=== PATIENT | female | born 1990 | race African-American/Black ===

== ENCOUNTER 2017-11-25 12:27 | Emergency (ER) | payer MEDICAID ==
[~2017-11-25] VITALS: Ht 175.3 cm; Wt 64.4 kg
--- NOTE | 2017-11-25 12:46 | NUR ---
Wants medical exam. Seen and eval by ERMD, may go home. ACI given and explained, showed sign of understanding. Home in stable condition.
== END 2017-11-25 12:55 | disposition home or self-care (01) ==
LOC: ER 12:27
DX: Z00.00 Encounter for general adult medical examination without abnormal findings (principal)
CPT/HCPCS: A4663

== ENCOUNTER 2018-11-11 02:26 | Emergency (ER) | payer MEDICAID ==
[~2018-11-11] VITALS: Ht 175.3 cm; Wt 65.8 kg
--- NOTE | 2018-11-11 02:54 | NUR ---
ER physician at bedside.
[2018-11-11] MEDS ORDERED: ONDANSETRON ODT 4 MG TAB.RAPDIS SL ONE (03:00)
[2018-11-11] MEDS ORDERED: ONDANSETRON ODT 4 MG TAB.RAPDIS ONE (03:04)
--- NOTE | 2018-11-11 03:04 | NUR ---
center medical and lab director at bedside.
[2018-11-11 03:14] LABS: *BILIRUBIN,URIN NEGATIVE (NEGATIVE); *BLOOD, URINE 2+ (NEGATIVE); *CLARITY,URINE CLEAR (CLEAR); *COLOR,URINE YELLOW (YELLOW); *KETONES,URINE TRACE (NEGATIVE); LEUKOCYTE ESTERASE ,URINE NEGATIVE (NEGATIVE); NITRITE, URINE NEGATIVE (NEGATIVE); PH,URINE 5.5 (5.0-8.0); UGLUCOSE NEGATIVE (NEGATIVE)
[2018-11-11 03:17] LABS: BASOPHILS % (AUTO) 0.4 % (0.0-2.0); EOSINOPHILS % (AUTO) 0.1 % (0.0-7.0); HEMATOCRIT 41.2 % (31.2-41.9); HEMOGLOBIN 13.9 g/dL (10.9-14.3); LYMPHOCYTES # (AUTO) 0.7 K/uL (20.0-40.0); LYMPHOCYTES % (AUTO) 14.4 % (20.5-51.5); MEAN CORPUSCULAR HEMOGLOBIN 29.5 uug (24.7-32.8); MEAN CORPUSCULAR HGB CONC 34 g/dL (32.3-35.6); MEAN CORPUSCULAR VOLUME 87.2 fL (75.5-95.3); MONOCYTES # (AUTO) 0.7 K/uL (2.0-10.0); MONOCYTES % (AUTO) 15.4 % (0.0-11.0); NEUTROPHILS # (AUTO) 3.3 K/uL (1.8-8.9); NEUTROPHILS % (AUTO) 69.7 % (38.5-71.5); PLATELET COUNT (AUTO) 99 K/uL (179-408); RED BLOOD CELL COUNT(AUTO) 4.72 MIL/uL (3.63-4.92); WHITE BLOOD COUNT (AUTO) 4.7 K/uL (3.8-11.8)
[2018-11-11 03:20] LABS: BACTERIA,URINE 2 /HPF (NONE SEEN); SQUAMOUS EPITHELIAL CELL,UR MANY /HPF (NONE SEEN); WBC,URINE 0-3 /HPF (0-3)
[2018-11-11 03:21] LABS: *URINE HCG, QUAL NEGATIVE (NEGATIVE)
[2018-11-11 03:23] LABS: CREATININE 0.8 mg/dL (0.6-1.3); POTASSIUM 3.4 mmol/L (3.5-5.1)
[2018-11-11 03:29] LABS: BILIRUBIN,DIRECT 0.2 mg/dL (0.0-0.2); BILIRUBIN,TOTAL 0.8 mg/dL (0.2-1.0); TOTAL PROTEIN, SERUM 7.1 g/dL (6.4-8.2)
[2018-11-11 03:52] LABS: LYMPHOCYTES % (MANUAL) 10 % (20-40); MONOCYTES % (MANUAL) 13 % (2-10); NEUTROPHILS % (MANUAL) 77 % (42-75)
--- NOTE | 2018-11-11 04:00 | NUR ---
Dr. Antonio spoke to [facility] byproducts pump operator, and had a malaria specialist paged. Awaiting call back from [facility].
[2018-11-11] MEDS ORDERED: IV NORMAL SALINE 1000 ML BAG IV ONE ×3 (04:15→14:00)
[2018-11-11] MEDS ORDERED: MORPHINE SULFATE 2 MG/1 ML DISP.SYRIN IV ONE (04:15)
[2018-11-11] MEDS ORDERED: ONDANSETRON 4 MG/2 ML VIAL IV ONE (04:15)
--- NOTE | 2018-11-11 04:26 | NUR ---
[facility] returned call regarding patient case. Dr. Antonio is on the phone with them.
[2018-11-11] MEDS ORDERED: MORPHINE SULFATE 2 MG/1 ML DISP.SYRIN ONE (04:29)
[2018-11-11] MEDS ORDERED: ONDANSETRON 4 MG/2 ML VIAL ONE (04:30)
--- NOTE | 2018-11-11 04:39 | NUR ---
Dr. Antonio called data processing supervisor to find medications for malaria: Malarone and Coartem
--- NOTE | 2018-11-11 05:01 | NUR ---
called warehouse man on follow up with medications. still pending medications
--- NOTE | 2018-11-11 05:06 | NUR ---
Call to [facility] placed to request for panel call with Bear Phelan DNP
--- NOTE | 2018-11-11 05:11 | NUR ---
Sandie, Charge nurse called and will have patient in room 324 on [facility] floor.
--- NOTE | 2018-11-11 05:30 | NUR ---
Calling Col[facility] Wallkill lisandro in regards to Malarone medication.
--- NOTE | 2018-11-11 05:40 | NUR ---
Spoke to the pharmacist, Ishaan, at [facility]. Stated they have supply but will have to wait for pharmacist in charge of dispensing transfer to come in at 0600. Will give a call back until then at [phone].
[2018-11-11] MEDS ORDERED: ACETAMINOPHEN ES 500 MG TABLET PO ONE (05:45)
[2018-11-11] MEDS ORDERED: MORPHINE SULFATE 4 MG/1 ML DISP.SYRIN IV ONE (05:45)
[2018-11-11] MEDS ORDERED: ACETAMINOPHEN ES 500 MG TABLET ONE (05:52)
[2018-11-11] MEDS ORDERED: MORPHINE SULFATE 4 MG/1 ML DISP.SYRIN ONE (05:53)
--- NOTE | 2018-11-11 06:19 | NUR ---
Dr. Antonio on the line with [facility] physician, Renuka chiang, regarding malaria.
[2018-11-11] MEDS ORDERED: CLINDAMYCIN 75 MG/5 ML PO ONE (06:30)
[2018-11-11] MEDS ORDERED: CLINDAMYCIN HCL 300 MG CAPSULE ONE (06:38)
[2018-11-11] MEDS ORDERED: CLINDAMYCIN HCL 150 MG CAPSULE ONE (06:38)
[2018-11-11] MEDS ORDERED: CLINDAMYCIN HCL 150 MG CAPSULE PO ONE (06:45)
--- NOTE | 2018-11-11 07:08 | NUR ---
shift report given to HAWK Moralez.
--- NOTE | 2018-11-11 07:47 | NUR ---
seen patient at the bedside. no complaints presented. advised patient of transfer to [facility] call back. patient requested to call family mombers to be called.
--- NOTE | 2018-11-11 07:52 | NUR ---
talked to Chel, family per patient and let her know about transfer to [facility].
[2018-11-11] MEDS ORDERED: MISCELLANEOUS MED XX ONE (10:45)
--- NOTE | 2018-11-11 13:50 | NUR ---
report given to Nina Schwarz. Lon, service learning coordinator will arrange for ambulance for pickup
[2018-11-11] MEDS ORDERED: KETOROLAC TROMETHAMINE 15 MG INJ IVP ONE (14:00)
[2018-11-11] MEDS ORDERED: METOCLOPRAMIDE HCL 10 MG/2 ML VIAL IV ONE (14:00)
[2018-11-11] MEDS ORDERED: KETOROLAC TROMETHAMINE 30 MG INJ ONE (14:12)
--- NOTE | 2018-11-11 14:18 | NUR ---
another liter of IV NS started and infusing via right AC #20. medicated with reglan and toradol IV
--- NOTE | 2018-11-11 15:26 | NUR ---
report given to Rosie EMT
[2018-11-11 15:34] VITALS: BP 111/68
== END 2018-11-11 15:38 | disposition short-term general hospital (02) ==
LOC: ER 02:28
DX: B54 Unspecified malaria (principal)
CPT/HCPCS: 36415; 71045; 80053; 80076; 81000; 81001; 83615; 84703; 85025; 85730; 87040 ×2; 96374; 96375; 96376; 99285; J1885; J2270 ×2; J2405; A4663; A9150; J7030; Q0162

== ENCOUNTER 2024-08-12 23:49 | Emergency (ER) | payer MEDICAID, OTHER ==
[~2024-08-12] VITALS: Ht 175.3 cm; Wt 79.4 kg
[~2024-08-12 23:49] MED LIST: NAPR-1009 PO
[2024-08-13 00:40] LABS: BASOPHILS % (AUTO) 0.7 % (0.0-2.0); EOSINOPHILS # (AUTO) 0.1 K/uL (0.0-0.7); HEMATOCRIT 34.3 % (31.2-41.9); LYMPHOCYTES # (AUTO) 2.8 K/uL (0.8-4.8); LYMPHOCYTES % (AUTO) 45.7 % (20.5-51.5); MEAN CORPUSCULAR HEMOGLOBIN 30.4 uug (24.7-32.8); MEAN CORPUSCULAR HGB CONC 35 g/dL (32.3-35.6); MEAN CORPUSCULAR VOLUME 86.7 fL (75.5-95.3); MONOCYTES # (AUTO) 0.6 K/uL (0.1-1.30); MONOCYTES % (AUTO) 9.2 % (0.0-11.0); NEUTROPHILS # (AUTO) 2.6 K/uL (1.8-8.9); NEUTROPHILS % (AUTO) 42.4 % (38.5-71.5); PLATELET COUNT (AUTO) 226 K/uL (179-408); RED BLOOD CELL COUNT(AUTO) 3.96 MIL/uL (3.63-4.92); RED CELL DISTRIBUTION WIDTH 13.9 % (12.3-17.7); WHITE BLOOD COUNT (AUTO) 6.1 K/uL (3.8-11.8)
[2024-08-13 00:41] LABS: DIFFERENTIAL COMMENT 1
[2024-08-13 00:45] LABS: CALCIUM 8.2 mg/dL (8.5-10.1); CREATININE 0.8 mg/dL (0.6-1.3); POTASSIUM 3.4 mmol/L (3.5-5.1)
[2024-08-13 00:57] LABS: ALBUMIN 3.2 g/dL (3.4-5.0); BILIRUBIN,TOTAL 0.3 mg/dL (0.2-1.0); TOTAL PROTEIN, SERUM 7.1 g/dL (6.4-8.2)
[2024-08-13 02:28] LABS: *BILIRUBIN,URIN NEGATIVE (NEGATIVE); *BLOOD, URINE NEGATIVE (NEGATIVE); *CLARITY,URINE CLEAR (CLEAR); *COLOR,URINE YELLOW (YELLOW); *KETONES,URINE NEGATIVE (NEGATIVE); *PROTEIN,URINE NEGATIVE (NEGATIVE); *URINE HCG, QUAL NEGATIVE (NEGATIVE); *UROBILINOGEN,URINE 0.2 E.U./dl (NORMAL); LEUKOCYTE ESTERASE ,URINE NEGATIVE (NEGATIVE); NITRITE, URINE NEGATIVE (NEGATIVE); UGLUCOSE NEGATIVE (NEGATIVE)
[2024-08-13 02:38] LABS: *AMPHETAMINE, URINE NEGATIVE (NEGATIVE); *BARBITURATE, URINE NEGATIVE (NEGATIVE); *BENZODIAZEPINE, URINE NEGATIVE (NEGATIVE); *CANNABINOID, URINE NEGATIVE (NEGATIVE); *COCCAINE, URINE NEGATIVE (NEGATIVE); *OPIATE, URINE NEGATIVE (NEGATIVE); *PHENCYCLIDINE SCREEN,URINE NEGATIVE (NEGATIVE); FENTANYL, URINE NEGATIVE (NEGATIVE)
[2024-08-13] MEDS ORDERED: IOHEXOL 300MG/ML 100 ML INFUS..BTL ONE (02:53)
[2024-08-13] MEDS ORDERED: IV NORMAL SALINE 250 ML IV ONE (02:53)
[2024-08-13] MEDS ORDERED: SWABABLE VALVE TRANSFER SET EA MC ONE (02:53)
[2024-08-13] MEDS ORDERED: PANT20TA2 PO (04:55)
[2024-08-13 04:58] VITALS: BP 118/83; O2SAT 100
== END 2024-08-13 05:12 | disposition home or self-care (01) ==
LOC: ER 23:54
DX: R07.89 Other chest pain (principal); R10.9 Unspecified abdominal pain; R06.02 Shortness of breath; Z79.899 Other long term (current) drug therapy; Z20.822 Contact with and (suspected) exposure to COVID-19
CPT/HCPCS: 99285; 74177; 71045; 87426; 87804 ×2; 80053; 81003; 84703; 83880; 85025; 85379; 86403; 87070; 84484; 36415; 93005; 80307; Q9967; A4606; A4663